=== PATIENT | female | born 1955 | race Asian ===

== ENCOUNTER → 2016-06-06 | Outpatient (CLI) | payer OTHER ==
[~2016-06-06] MED LIST: ACET-2744 PO; ASPI-1061 PO; DSS100 PO; HYDR-3965 PO; MULT-950 PO; SIMV-261 PO
[2016-06-06 13:00] LABS: BASOPHILS % (AUTO) 0.7 % (0.0-2.0); EOSINOPHILS % (AUTO) 2.7 % (1.0-6.0); HEMATOCRIT 48.2 % (36-46); HEMOGLOBIN 15.6 g/dL (12.0-16.0); LYMPHOCYTES # (AUTO) 3.4 K/uL (1.0-4.8); LYMPHOCYTES % (AUTO) 39.3 % (22.0-44.0); MEAN CORPUSCULAR HEMOGLOBIN 29.8 pg (26.0-34.0); MEAN CORPUSCULAR HGB CONC 32.4 G/dL (31.0-37.0); MEAN CORPUSCULAR VOLUME 92 fL (80-100); MONOCYTES # (AUTO) 0.4 K/uL (0.1-1.0); MONOCYTES % (AUTO) 4.9 % (2.0-9.0); NEUTROPHILS # (AUTO) 4.5 K/uL (1.8-7.7); NEUTROPHILS % (AUTO) 52.4 % (40.0-70.0); PLATELET COUNT (AUTO) 333 K/uL (150-450); RED BLOOD CELL COUNT(AUTO) 5.25 MIL/uL (4.00-5.20); RED CELL DISTRIBUTION WIDTH 13.9 % (11.5-14.5); WHITE BLOOD COUNT (AUTO) 8.6 K/uL (4.5-11.0)
[2016-06-06 13:16] LABS: HEMOGLOBIN A1C 6.7 % (4.5-6.2)
[2016-06-06 13:18] LABS: ALANINE AMINOTRANSFERASE 30 U/L (12-78); ANION GAP 11 mmol/L (8-16); ASPARTATE AMINOTRANSFERASE 25 U/L (15-37); BILIRUBIN,TOTAL 0.7 mg/dL (0.1-1.0); CALCIUM, TOTAL 9.4 mg/dL (8.8-10.5); CARBON DIOXIDE 28 mmol/L (22-29); CHLORIDE 100 mmol/L (98-107); CHOL/HDL RATIO 5.7 (3.9-5.7); GLOMERULAR FILTR. RATE CALC > 60 mL/min (>60); POTASSIUM 3.7 mmol/L (3.5-5.1); SODIUM SERUM 139 mmol/L (136-145); THYROID STIMULATING HORMONE 1.74 uIU/mL (0.36-3.74); TOTAL PROTEIN, SERUM 8.8 g/dL (6.4-8.2); UREA NITROGEN, BLOOD 18 mg/dL (7-18)
[2016-06-07 13:46] LABS: CREATININE, URINE (mALB) 86.1 mg/dL (Not Estab.)
== END | disposition home or self-care (01) ==
LOC: LABPV 09:42
PROVIDERS: ATTEND Legal Medicine
DX: E11.65 Type 2 diabetes mellitus with hyperglycemia (principal); E11.69 Type 2 diabetes mellitus with other specified complication; E78.2 Mixed hyperlipidemia; C50.819 Malignant neoplasm of overlapping sites of unspecified female breast
CPT/HCPCS: 82043; 82306; 82378; 82570; 83036; 84443

== ENCOUNTER → 2016-07-05 | Outpatient (CLI) | payer OTHER | END | disposition home or self-care (01) | LOC: RADPV 13:13 | PROVIDERS: ATTEND Legal Medicine | DX: M16.12 Unilateral primary osteoarthritis, left hip (principal) | CPT/HCPCS: 73503 ==

== ENCOUNTER → 2016-10-09 | Outpatient (CLI) | payer OTHER ==
[2016-10-09 13:26] LABS: BASOPHILS % (AUTO) 0.6 % (0.0-2.0); EOSINOPHILS % (AUTO) 2.8 % (1.0-6.0); HEMOGLOBIN 14.8 g/dL (12.0-16.0); LYMPHOCYTES # (AUTO) 3.3 K/uL (1.0-4.8); LYMPHOCYTES % (AUTO) 38.7 % (22.0-44.0); MEAN CORPUSCULAR HEMOGLOBIN 30.1 pg (26.0-34.0); MEAN CORPUSCULAR HGB CONC 32.9 G/dL (31.0-37.0); MEAN CORPUSCULAR VOLUME 91 fL (80-100); MONOCYTES # (AUTO) 0.4 K/uL (0.1-1.0); MONOCYTES % (AUTO) 5.2 % (2.0-9.0); NEUTROPHILS # (AUTO) 4.4 K/uL (1.8-7.7); NEUTROPHILS % (AUTO) 52.7 % (40.0-70.0); PLATELET COUNT (AUTO) 370 K/uL (150-450); RED BLOOD CELL COUNT(AUTO) 4.91 MIL/uL (4.00-5.20); RED CELL DISTRIBUTION WIDTH 13.7 % (11.5-14.5); WHITE BLOOD COUNT (AUTO) 8.4 K/uL (4.5-11.0)
[2016-10-09 13:40] LABS: ALANINE AMINOTRANSFERASE 30 U/L (12-78); ALBUMIN 3.9 g/dL (3.4-5.0); ANION GAP 7 mmol/L (8-16); ASPARTATE AMINOTRANSFERASE 23 U/L (15-37); BILIRUBIN,TOTAL 0.5 mg/dL (0.1-1.0); CALCIUM, TOTAL 9.2 mg/dL (8.8-10.5); CARBON DIOXIDE 30 mmol/L (22-29); CHLORIDE 103 mmol/L (98-107); CHOL/HDL RATIO 4.4 (3.9-5.7); GLOMERULAR FILTR. RATE CALC > 60 mL/min (>60); POTASSIUM 4.5 mmol/L (3.5-5.1); SODIUM SERUM 140 mmol/L (136-145); TOTAL PROTEIN, SERUM 8.5 g/dL (6.4-8.2); UREA NITROGEN, BLOOD 19 mg/dL (7-18)
[2016-10-10 16:15] LABS: CREATININE, URINE (mALB) 130.6 mg/dL (Not Estab.)
== END | disposition home or self-care (01) ==
LOC: LABPV 11:29
PROVIDERS: ATTEND Legal Medicine
DX: E11.65 Type 2 diabetes mellitus with hyperglycemia (principal); I10 Essential (primary) hypertension; E78.2 Mixed hyperlipidemia
CPT/HCPCS: 82043; 82570; 83036

== ENCOUNTER → 2017-04-10 | Outpatient (CLI) | payer OTHER ==
[~2017-04-10] MED LIST changes: -ASPI-1061 PO; +ASPI81TA33 PO; -HYDR-3965 PO; +HYDR-4061 PO
[2017-04-10 14:56] LABS: BASOPHILS % (AUTO) 0.6 % (0.0-2.0); EOSINOPHILS % (AUTO) 2.3 % (1.0-6.0); HEMATOCRIT 45.9 % (36-46); HEMOGLOBIN 15.5 g/dL (12.0-16.0); LYMPHOCYTES # (AUTO) 3.1 K/uL (1.0-4.8); LYMPHOCYTES % (AUTO) 30.7 % (22.0-44.0); MEAN CORPUSCULAR HEMOGLOBIN 30.8 pg (26.0-34.0); MEAN CORPUSCULAR HGB CONC 33.8 G/dL (31.0-37.0); MEAN CORPUSCULAR VOLUME 91 fL (80-100); MONOCYTES # (AUTO) 0.6 K/uL (0.1-1.0); MONOCYTES % (AUTO) 6.3 % (2.0-9.0); NEUTROPHILS % (AUTO) 60.1 % (40.0-70.0); PLATELET COUNT (AUTO) 320 K/uL (150-450); RED BLOOD CELL COUNT(AUTO) 5.03 MIL/uL (4.00-5.20); RED CELL DISTRIBUTION WIDTH 14.1 % (11.5-14.5)
[2017-04-10 15:28] LABS: HEMOGLOBIN A1C 6.9 % (4.5-6.2)
[2017-04-10 15:35] LABS: ALANINE AMINOTRANSFERASE 35 U/L (12-78); ANION GAP 8 mmol/L (8-16); ASPARTATE AMINOTRANSFERASE 29 U/L (15-37); BILIRUBIN,TOTAL 0.7 mg/dL (0.1-1.0); CALCIUM, TOTAL 9.4 mg/dL (8.8-10.5); CARBON DIOXIDE 30 mmol/L (22-29); CHLORIDE 100 mmol/L (98-107); CHOL/HDL RATIO 3.4 (3.9-5.7); CREATININE 0.86 mg/dL (0.60-1.30); GLOMERULAR FILTR. RATE CALC > 60 mL/min (>60); POTASSIUM 4.2 mmol/L (3.5-5.1); SODIUM SERUM 138 mmol/L (136-145); THYROID STIMULATING HORMONE 1.65 uIU/mL (0.36-3.74); TOTAL PROTEIN, SERUM 8.7 g/dL (6.4-8.2); UREA NITROGEN, BLOOD 18 mg/dL (7-18)
[2017-04-10 15:57] LABS: VITAMIN B12 LEVEL > 2000 pg/mL (211-911)
[2017-04-11 11:23] LABS: CREATININE, URINE (mALB) 66.2 mg/dL (Not Estab.)
== END | disposition home or self-care (01) ==
LOC: LABPV 11:32
PROVIDERS: ATTEND Legal Medicine
DX: E78.2 Mixed hyperlipidemia (principal); I10 Essential (primary) hypertension; E11.69 Type 2 diabetes mellitus with other specified complication; C50.811 Malignant neoplasm of overlapping sites of right female breast
CPT/HCPCS: 82043; 82306; 82378; 82570; 82607; 82746; 83036; 83735; 84443

== ENCOUNTER → 2017-04-16 | Outpatient (CLI) | payer OTHER | END | disposition home or self-care (01) | LOC: RADPV 11:44 | PROVIDERS: ATTEND Legal Medicine | DX: M19.011 Primary osteoarthritis, right shoulder (principal) ==

== ENCOUNTER → 2017-11-10 | Outpatient (CLI) | payer OTHER ==
[~2017-11-10] MED LIST changes: -ASPI81TA33 PO; +ASPI81TA87 PO
[2017-11-10 13:01] LABS: BASOPHILS % (AUTO) 1.1 % (0.0-2.0); HEMATOCRIT 43.4 % (36-46); HEMOGLOBIN 14.7 g/dL (12.0-16.0); LYMPHOCYTES % (AUTO) 40.7 % (22.0-44.0); MEAN CORPUSCULAR HEMOGLOBIN 30.9 pg (26.0-34.0); MEAN CORPUSCULAR HGB CONC 33.7 G/dL (31.0-37.0); MEAN CORPUSCULAR VOLUME 92 fL (80-100); MONOCYTES # (AUTO) 0.4 K/uL (0.1-1.0); MONOCYTES % (AUTO) 5.8 % (2.0-9.0); NEUTROPHILS # (AUTO) 3.6 K/uL (1.8-7.7); NEUTROPHILS % (AUTO) 49.4 % (40.0-70.0); PLATELET COUNT (AUTO) 314 K/uL (150-450); RED BLOOD CELL COUNT(AUTO) 4.74 MIL/uL (4.00-5.20); RED CELL DISTRIBUTION WIDTH 13.5 % (11.5-14.5)
[2017-11-10 13:19] LABS: HEMOGLOBIN A1C 7.4 % (4.5-6.2)
[2017-11-10 13:26] LABS: VITAMIN B12 LEVEL 1578 pg/mL (211-911); VITAMIN D,TOTAL (25-0H) 29 ng/mL (30-100)
[2017-11-10 13:28] LABS: ALANINE AMINOTRANSFERASE 32 U/L (12-78); ALBUMIN 3.7 g/dL (3.4-5.0); ALKALINE PHOSPHATASE 92 U/L (46-116); ANION GAP 7 mmol/L (8-16); ASPARTATE AMINOTRANSFERASE 23 U/L (15-37); BILIRUBIN,TOTAL 0.4 mg/dL (0.1-1.0); CALCIUM, TOTAL 8.7 mg/dL (8.8-10.5); CARBON DIOXIDE 29 mmol/L (22-29); CHLORIDE 103 mmol/L (98-107); CHOL/HDL RATIO 4.8 (3.9-5.7); CHOLESTEROL 203 mg/dL (131-200); CREATININE 0.78 mg/dL (0.60-1.30); GLOMERULAR FILTR. RATE CALC > 60 mL/min (>60); GLUCOSE,RANDOM 140 mg/dL (70-110); HDL CHOLESTEROL 42 mg/dL (40-60); LDL CHOL (CALC.) 135 mg/dL (0-130); SODIUM SERUM 139 mmol/L (136-145); THYROID STIMULATING HORMONE 1.74 uIU/mL (0.36-3.74); TOTAL PROTEIN, SERUM 7.9 g/dL (6.4-8.2); TRIGLYCERIDES 130 mg/dL (15-150); UREA NITROGEN, BLOOD 19 mg/dL (7-18)
[2017-11-10 13:45] LABS: FOLATE SERUM > 24.0 ng/mL (5.4-)
== END | disposition home or self-care (01) ==
LOC: LABPV 09:49
PROVIDERS: ATTEND Legal Medicine
DX: E11.65 Type 2 diabetes mellitus with hyperglycemia (principal); E78.2 Mixed hyperlipidemia; C50.819 Malignant neoplasm of overlapping sites of unspecified female breast
CPT/HCPCS: 82043; 82306; 82378; 82570; 82607; 82746; 83036; 84443

== ENCOUNTER → 2018-07-14 | Outpatient (CLI) | payer OTHER ==
[2018-07-14 12:50] LABS: BASOPHILS % (AUTO) 1.1 % (0.0-2.0); HEMATOCRIT 45.7 % (36-46); HEMOGLOBIN 14.9 g/dL (12.0-16.0); LYMPHOCYTES # (AUTO) 2.9 K/uL (1.0-4.8); LYMPHOCYTES % (AUTO) 39.9 % (22.0-44.0); MEAN CORPUSCULAR HEMOGLOBIN 30.2 pg (26.0-34.0); MEAN CORPUSCULAR HGB CONC 32.7 G/dL (31.0-37.0); MEAN CORPUSCULAR VOLUME 92 fL (80-100); MONOCYTES # (AUTO) 0.4 K/uL (0.1-1.0); MONOCYTES % (AUTO) 5.2 % (2.0-9.0); NEUTROPHILS # (AUTO) 3.7 K/uL (1.8-7.7); NEUTROPHILS % (AUTO) 50.8 % (40.0-70.0); PLATELET COUNT (AUTO) 335 K/uL (150-450); RED BLOOD CELL COUNT(AUTO) 4.95 MIL/uL (4.00-5.20); RED CELL DISTRIBUTION WIDTH 13.4 % (11.5-14.5)
[2018-07-14 13:02] LABS: HEMOGLOBIN A1C 7.5 % (4.5-6.2)
[2018-07-14 13:13] LABS: ALANINE AMINOTRANSFERASE 31 U/L (12-78); ALBUMIN 3.9 g/dL (3.4-5.0); ALKALINE PHOSPHATASE 86 U/L (46-116); ANION GAP 9 mmol/L (8-16); ASPARTATE AMINOTRANSFERASE 27 U/L (15-37); BILIRUBIN,TOTAL 0.7 mg/dL (0.1-1.0); CALCIUM, TOTAL 9.3 mg/dL (8.8-10.5); CARBON DIOXIDE 28 mmol/L (22-29); CHLORIDE 100 mmol/L (98-107); CHOL/HDL RATIO 4.6 (3.9-5.7); CHOLESTEROL 212 mg/dL (131-200); CREATININE 0.71 mg/dL (0.60-1.30); GLOMERULAR FILTR. RATE CALC > 60 mL/min (>60); GLUCOSE,RANDOM 147 mg/dL (70-110); HDL CHOLESTEROL 46 mg/dL (40-60); LDL CHOL (CALC.) 145 mg/dL (0-130); SODIUM SERUM 137 mmol/L (136-145); THYROID STIMULATING HORMONE 1.22 uIU/mL (0.36-3.74); TOTAL PROTEIN, SERUM 8.3 g/dL (6.4-8.2); TRIGLYCERIDES 104 mg/dL (15-150); UREA NITROGEN, BLOOD 18 mg/dL (7-18)
[2018-07-14 13:15] LABS: VITAMIN B12 LEVEL 1609 pg/mL (211-911); VITAMIN D,TOTAL (25-0H) 41 ng/mL (30-100)
[2018-07-14 13:24] LABS: FOLATE SERUM > 24.0 ng/mL (5.4-)
== END | disposition home or self-care (01) ==
LOC: LABPV 11:26
PROVIDERS: ATTEND Legal Medicine
DX: C50.819 Malignant neoplasm of overlapping sites of unspecified female breast (principal); K21.9 Gastro-esophageal reflux disease without esophagitis; I10 Essential (primary) hypertension; E78.2 Mixed hyperlipidemia; E11.65 Type 2 diabetes mellitus with hyperglycemia
CPT/HCPCS: 82043; 82306; 82378; 82570; 82607; 82746; 83036; 83735; 84443

== ENCOUNTER → 2018-12-29 | Outpatient (CLI) | payer OTHER ==
[2018-12-29 12:20] LABS: BASOPHILS % (AUTO) 1.2 % (0.0-2.0); EOSINOPHILS % (AUTO) 2.7 % (1.0-6.0); LYMPHOCYTES # (AUTO) 3.2 K/uL (1.0-4.8); LYMPHOCYTES % (AUTO) 39.2 % (22.0-44.0); MEAN CORPUSCULAR HEMOGLOBIN 30.4 pg (26.0-34.0); MEAN CORPUSCULAR HGB CONC 32.5 G/dL (31.0-37.0); MEAN CORPUSCULAR VOLUME 93 fL (80-100); MONOCYTES # (AUTO) 0.5 K/uL (0.1-1.0); MONOCYTES % (AUTO) 5.9 % (2.0-9.0); NEUTROPHILS # (AUTO) 4.1 K/uL (1.8-7.7); PLATELET COUNT (AUTO) 322 K/uL (150-450); RED BLOOD CELL COUNT(AUTO) 4.93 MIL/uL (4.00-5.20); RED CELL DISTRIBUTION WIDTH 13.6 % (11.5-14.5)
[2018-12-29 12:44] LABS: VITAMIN B12 LEVEL 1833 pg/mL (211-911); VITAMIN D,TOTAL (25-0H) 29 ng/mL (30-100)
[2018-12-29 12:57] LABS: FOLATE SERUM > 24.0 ng/mL (5.4-)
[2018-12-29 13:10] LABS: ALANINE AMINOTRANSFERASE 25 U/L (12-78); ALKALINE PHOSPHATASE 86 U/L (46-116); ANION GAP 10 mmol/L (8-16); ASPARTATE AMINOTRANSFERASE 24 U/L (15-37); BILIRUBIN,TOTAL 0.7 mg/dL (0.1-1.0); CALCIUM, TOTAL 9.1 mg/dL (8.8-10.5); CARBON DIOXIDE 27 mmol/L (22-29); CHLORIDE 101 mmol/L (98-107); CHOL/HDL RATIO 4.3 (3.9-5.7); CHOLESTEROL 200 mg/dL (131-200); CREATININE 0.72 mg/dL (0.60-1.30); GLOMERULAR FILTR. RATE CALC > 60 mL/min (>60); GLUCOSE,RANDOM 141 mg/dL (70-110); HDL CHOLESTEROL 47 mg/dL (40-60); LDL CHOL (CALC.) 131 mg/dL (0-130); POTASSIUM 3.6 mmol/L (3.5-5.1); SODIUM SERUM 138 mmol/L (136-145); THYROID STIMULATING HORMONE 1.11 uIU/mL (0.36-3.74); TOTAL PROTEIN, SERUM 8.3 g/dL (6.4-8.2); TRIGLYCERIDES 108 mg/dL (15-150); UREA NITROGEN, BLOOD 15 mg/dL (7-18)
== END | disposition home or self-care (01) ==
LOC: LABPV 11:14
PROVIDERS: ATTEND Legal Medicine
DX: C50.819 Malignant neoplasm of overlapping sites of unspecified female breast (principal); K21.9 Gastro-esophageal reflux disease without esophagitis; I10 Essential (primary) hypertension; E78.2 Mixed hyperlipidemia
CPT/HCPCS: 82043; 82306; 82378; 82570; 82607; 82746; 83036; 84443

== ENCOUNTER → 2019-05-31 | Outpatient (CLI) | payer OTHER ==
[2019-05-31 12:57] LABS: HEMATOCRIT 47.2 % (36-46); HEMOGLOBIN 15.5 g/dL (12.0-16.0); LYMPHOCYTES # (AUTO) 3.3 K/uL (1.0-4.8); LYMPHOCYTES % (AUTO) 43.3 % (22.0-44.0); MEAN CORPUSCULAR HEMOGLOBIN 30.3 pg (26.0-34.0); MEAN CORPUSCULAR HGB CONC 32.8 G/dL (31.0-37.0); MEAN CORPUSCULAR VOLUME 92 fL (80-100); MONOCYTES # (AUTO) 0.4 K/uL (0.1-1.0); MONOCYTES % (AUTO) 5.6 % (2.0-9.0); NEUTROPHILS # (AUTO) 3.5 K/uL (1.8-7.7); NEUTROPHILS % (AUTO) 47.1 % (40.0-70.0); PLATELET COUNT (AUTO) 347 K/uL (150-450); RED BLOOD CELL COUNT(AUTO) 5.12 MIL/uL (4.00-5.20); RED CELL DISTRIBUTION WIDTH 13.6 % (11.5-14.5)
[2019-05-31 13:32] LABS: ALANINE AMINOTRANSFERASE 42 U/L (12-78); ALBUMIN 3.9 g/dL (3.4-5.0); ALKALINE PHOSPHATASE 89 U/L (46-116); ANION GAP 9 mmol/L (8-16); ASPARTATE AMINOTRANSFERASE 22 U/L (15-37); BILIRUBIN,TOTAL 0.6 mg/dL (0.1-1.0); CALCIUM, TOTAL 8.9 mg/dL (8.8-10.5); CARBON DIOXIDE 28 mmol/L (22-29); CHLORIDE 98 mmol/L (98-107); CHOL/HDL RATIO 4.9 (3.9-5.7); CHOLESTEROL 232 mg/dL (131-200); CREATININE 0.79 mg/dL (0.60-1.30); GLOMERULAR FILTR. RATE CALC > 60 mL/min (>60); GLUCOSE,RANDOM 145 mg/dL (70-110); HDL CHOLESTEROL 47 mg/dL (40-60); LDL CHOL (CALC.) 143 mg/dL (0-130); POTASSIUM 3.6 mmol/L (3.5-5.1); SODIUM SERUM 135 mmol/L (136-145); THYROID STIMULATING HORMONE 1.51 uIU/mL (0.36-3.74); TOTAL PROTEIN, SERUM 8.4 g/dL (6.4-8.2); TRIGLYCERIDES 211 mg/dL (15-150); UREA NITROGEN, BLOOD 17 mg/dL (7-18)
[2019-05-31 13:49] LABS: HEMOGLOBIN A1C 8.4 % (4.5-6.2)
[2019-05-31 13:59] LABS: FOLATE SERUM 20.2 ng/mL (5.4-)
== END | disposition home or self-care (01) ==
LOC: LABPV 11:50
PROVIDERS: ATTEND Legal Medicine
DX: C50.819 Malignant neoplasm of overlapping sites of unspecified female breast (principal); I10 Essential (primary) hypertension; E11.65 Type 2 diabetes mellitus with hyperglycemia; E78.2 Mixed hyperlipidemia; K21.9 Gastro-esophageal reflux disease without esophagitis
CPT/HCPCS: 82043; 82306; 82378; 82570; 82607; 82746; 83036; 83735; 84443

== ENCOUNTER 2020-01-03 13:21 | Emergency (ER) | payer OTHER ==
[~2020-01-03] VITALS: Ht 152.4 cm; Wt 55.5 kg
[2020-01-03 13:28] VITALS: BP 159/86
== END 2020-01-03 14:39 | disposition home or self-care (01) ==
LOC: EMS 13:24
DX: Z20.828 Contact with and (suspected) exposure to other viral communicable diseases (principal); E78.00 Pure hypercholesterolemia, unspecified; Z88.0 Allergy status to penicillin; Z88.2 Allergy status to sulfonamides
CPT/HCPCS: 87426; 99283; U0003

== ENCOUNTER → 2020-01-10 | Outpatient (CLI) | payer OTHER ==
[~2020-01-10] MED LIST changes: -ACET-2744 PO; -DSS100 PO; -HYDR-4061 PO
[2020-01-10 10:58] LABS: BASOPHILS % (AUTO) 0.7 % (0.0-2.0); EOSINOPHILS % (AUTO) 0 % (1.0-6.0); HEMATOCRIT 45.5 % (36-46); HEMOGLOBIN 15.2 g/dL (12.0-16.0); LYMPHOCYTES % (AUTO) 37.1 % (22.0-44.0); MEAN CORPUSCULAR HEMOGLOBIN 30.4 pg (26.0-34.0); MEAN CORPUSCULAR HGB CONC 33.4 G/dL (31.0-37.0); MEAN CORPUSCULAR VOLUME 91 fL (80-100); MONOCYTES # (AUTO) 0.6 K/uL (0.1-1.0); MONOCYTES % (AUTO) 10.2 % (2.0-9.0); NEUTROPHILS # (AUTO) 2.8 K/uL (1.8-7.7); PLATELET COUNT (AUTO) 206 K/uL (150-450); RED BLOOD CELL COUNT(AUTO) 4.99 MIL/uL (4.00-5.20); RED CELL DISTRIBUTION WIDTH 13.5 % (11.5-14.5)
[2020-01-10 11:17] LABS: ALBUMIN 3.5 g/dL (3.4-5.0); BILIRUBIN,TOTAL 0.5 mg/dL (0.1-1.0); CALCIUM, TOTAL 8.6 mg/dL (8.8-10.5); CHOL/HDL RATIO 5.3 (3.9-5.7); CREATININE 1.12 mg/dL (0.60-1.30); POTASSIUM 3.7 mmol/L (3.5-5.1); TOTAL PROTEIN, SERUM 8.5 g/dL (6.4-8.2)
[2020-01-10 11:26] LABS: HEMOGLOBIN A1C 7.4 % (3.8-5.6)
[2020-01-10 11:51] LABS: VITAMIN B12 LEVEL 1738 pg/mL (211-911); VITAMIN D,TOTAL (25-0H) 30 ng/mL (30-100)
[2020-01-10 12:42] LABS: FOLATE SERUM > 24.0 ng/mL (5.4-)
[2020-01-10 14:11] LABS: THYROID STIMULATING HORMONE 1.59 uIU/mL (0.36-3.74)
== END | disposition home or self-care (01) ==
LOC: LABPV 09:31
PROVIDERS: ATTEND Legal Medicine
DX: I10 Essential (primary) hypertension (principal); E11.65 Type 2 diabetes mellitus with hyperglycemia; E11.59 Type 2 diabetes mellitus with other circulatory complications; E11.69 Type 2 diabetes mellitus with other specified complication; E78.2 Mixed hyperlipidemia; C50.819 Malignant neoplasm of overlapping sites of unspecified female breast
CPT/HCPCS: 82043; 82306; 82378; 82570; 82607; 82746; 83036; 84443

== ENCOUNTER 2020-01-15 12:38 | Inpatient (IN) | payer OTHER ==
[~2020-01-15] VITALS: Ht 152.4 cm; Wt 47.7 kg
[2020-01-15] MEDS ORDERED: SODIUM CHLORIDE 0.9% 1,000 ML IV ONE ×2 (13:00→17:15)
[2020-01-15 13:24] LABS: BASOPHILS % (AUTO) 1.3 % (0.0-2.0); EOSINOPHILS % (AUTO) 0.2 % (1.0-6.0); HEMATOCRIT 48.5 % (36-46); HEMOGLOBIN 16.3 g/dL (12.0-16.0); LYMPHOCYTES # (AUTO) 1.8 K/uL (1.0-4.8); LYMPHOCYTES % (AUTO) 30.1 % (22.0-44.0); MEAN CORPUSCULAR HEMOGLOBIN 30.5 pg (26.0-34.0); MEAN CORPUSCULAR HGB CONC 33.7 G/dL (31.0-37.0); MEAN CORPUSCULAR VOLUME 91 fL (80-100); MONOCYTES # (AUTO) 0.5 K/uL (0.1-1.0); MONOCYTES % (AUTO) 8.6 % (2.0-9.0); NEUTROPHILS # (AUTO) 3.6 K/uL (1.8-7.7); NEUTROPHILS % (AUTO) 59.8 % (40.0-70.0); PLATELET COUNT (AUTO) 303 K/uL (150-450); RED BLOOD CELL COUNT(AUTO) 5.35 MIL/uL (4.00-5.20); RED CELL DISTRIBUTION WIDTH 13.6 % (11.5-14.5)
[2020-01-15 13:37] LABS: ANION GAP 13 mmol/L (8-16); CALCIUM, TOTAL 9.2 mg/dL (8.8-10.5); CARBON DIOXIDE 26 mmol/L (22-29); CHLORIDE 101 mmol/L (98-107); CREATININE 2.12 mg/dL (0.60-1.30); GLOMERULAR FILTR. RATE CALC 24 mL/min (>60); GLUCOSE,RANDOM 144 mg/dL (70-110); SODIUM SERUM 140 mmol/L (136-145); UREA NITROGEN, BLOOD 37 mg/dL (7-18)
[2020-01-15 13:44] LABS: LACTIC ACID 1.6 mmol/L (0.4-2.0)
[2020-01-15 13:49] LABS: TROPONIN I < 0.02 ng/mL (0.00-0.05)
[2020-01-15 13:50] LABS: SALICYLATE < 2.8 mg/dL (2.8-20.0)
[2020-01-15 13:58] LABS: B-TYPE NATRIURETIC PEPTIDE 16 pg/mL (0-100)
[2020-01-15] MEDS ORDERED: SODIUM CHLORIDE 0.9% 2,200 ML IV ONE (14:00)
[2020-01-15 14:03] LABS: ALANINE AMINOTRANSFERASE 61 U/L (12-78); ALBUMIN 3.7 g/dL (3.4-5.0); ALKALINE PHOSPHATASE 72 U/L (46-116); ASPARTATE AMINOTRANSFERASE 68 U/L (15-37); BILIRUBIN,TOTAL 0.8 mg/dL (0.1-1.0); CREATINE KINASE, TOTAL ONLY 236 U/L (26-192); LIPASE 267 U/L (73-393); TOTAL PROTEIN, SERUM 9.4 g/dL (6.4-8.2)
[2020-01-15 14:04] LABS: ACETAMINOPHEN < 2 mcg/mL (10-30)
[2020-01-15 14:06] LABS: AMMONIA < 10 umol/L (11-32)
[2020-01-15 14:07] LABS: ACETONE,BLOOD NEGATIVE (NEGATIVE)
[2020-01-15 15:27] LABS: GLUCOSE,POINT OF CARE 116 MG/DL (70-110)
[2020-01-15] MEDS ORDERED: ACETAMINOPHEN 325 MG TABLET PO PRN (15:30)
[2020-01-15] MEDS ORDERED: ONDANSETRON HCL 4 MG/2 ML VIAL IVP PRN (15:30)
[2020-01-15 16:45] LABS: APPEARANCE,URINE CLOUDY (CLEAR); BILIRUBIN,URINE NEGATIVE (NEGATIVE); GLUCOSE, URINE (UA) NEGATIVE (NEGATIVE); KETONES,URINE TRACE mg/dL (NEGATIVE); LEUKOCYTE ESTERASE ,URINE SMALL (NEGATIVE); NITRATE,URINE NEGATIVE (NEGATIVE); OCCULT BLOOD,URINE NEGATIVE (NEGATIVE); PH,URINE 5.5 (5.0-8.0); PROTEIN,URINE TRACE (NEGATIVE)
[2020-01-15 16:50] LABS: AMPHET/METH SCREEN,URINE NEGATIVE (NEGATIVE); BARBITURATE SCREEN, URINE NEGATIVE (NEGATIVE); BENZODIAZEPINES SCREEN,URINE NEGATIVE (NEGATIVE); CANNABINOID SCREEN,URINE NEGATIVE (NEGATIVE); COCAINE SCREEN,URINE NEGATIVE (NEGATIVE); METHADONE SCREEN, URINE NEGATIVE (NEGATIVE); OPIATE SCREEN,URINE NEGATIVE (NEGATIVE); PHENCYCLIDINE SCREEN,URINE NEGATIVE (NEGATIVE)
[2020-01-15] MEDS ORDERED: HEPARIN SODIUM 25000 UNITS/D5W 250 ML IV PRN (17:03)
[2020-01-15 17:10] LABS: RBC,URINE None Seen /HPF (0-2)
[2020-01-15 17:11] LABS: BACTERIA,URINE Rare /HPF (None Seen); SQUAMOUS EPITHELIAL CELL,UR Few /LPF (None Seen)
[2020-01-15] MEDS ORDERED: HEPARIN SODIUM,PORCINE 5,000 UNITS/ML VIAL IVP PRN ×2 (17:15)
[2020-01-15 17:49] LABS: PROTHROMBIN TIME 10.2 SEC (9.4-11.6)
[2020-01-15 17:50] LABS: D-DIMER 0.7 mg/L FEU (0.00-0.50)
[2020-01-15 18:48] LABS: C-REACTIVE PROTEIN QUANT 4.06 mg/dL (0.00-0.30)
[2020-01-15 20:15] VITALS: BP 168/85
[2020-01-15] MEDS: ASCORBIC ACID 500 MG TABLET PO SCH (21:57)
[2020-01-15] MEDS: ZINC SULFATE 220 MG CAPSULE PO SCH (21:57)
[2020-01-15] MEDS: THIAMINE 100 MG/ML 2 ML VIAL IVP SCH (21:58)
[2020-01-15 23:53] VITALS: BP 160/85
[2020-01-16 06:17] VITALS: BP 144/78
[2020-01-16 06:54] LABS: GLUCOMETER DEV NAME(LOC) 4E.2; GLUCOSE,POINT OF CARE 99 MG/DL (70-110)
[2020-01-16 07:07] LABS: EOSINOPHILS % (AUTO) 1.7 % (1.0-6.0); HEMATOCRIT 41.7 % (36-46); HEMOGLOBIN 13.8 g/dL (12.0-16.0); LYMPHOCYTES # (AUTO) 2.4 K/uL (1.0-4.8); LYMPHOCYTES % (AUTO) 37.6 % (22.0-44.0); MEAN CORPUSCULAR HEMOGLOBIN 30.1 pg (26.0-34.0); MEAN CORPUSCULAR HGB CONC 33.2 G/dL (31.0-37.0); MEAN CORPUSCULAR VOLUME 91 fL (80-100); MONOCYTES # (AUTO) 0.6 K/uL (0.1-1.0); MONOCYTES % (AUTO) 8.9 % (2.0-9.0); NEUTROPHILS # (AUTO) 3.2 K/uL (1.8-7.7); NEUTROPHILS % (AUTO) 50.8 % (40.0-70.0); PLATELET COUNT (AUTO) 312 K/uL (150-450); RED CELL DISTRIBUTION WIDTH 13.7 % (11.5-14.5)
[2020-01-16 07:32] LABS: D-DIMER 0.73 mg/L FEU (0.00-0.50)
[2020-01-16 08:02] LABS: C-REACTIVE PROTEIN QUANT 2.39 mg/dL (0.00-0.30); FERRITIN 1401 ng/mL (8-252); LACTATE DEHYDROGENASE 531 U/L (81-234)
[2020-01-16 08:48] VITALS: BP 163/70
[2020-01-16] MEDS: ASCORBIC ACID 500 MG TABLET PO SCH ×3 (09:20→21:04)
[2020-01-16] MEDS: ZINC SULFATE 220 MG CAPSULE PO SCH ×2 (09:21→21:05)
[2020-01-16] MEDS: THIAMINE 100 MG/ML 2 ML VIAL IVP SCH (09:22)
[2020-01-16] MEDS ORDERED: DEXTROSE 50%-WATER 25 GM/50 ML SYRINGE IVP PRN (11:30)
[2020-01-16] MEDS: AmLODIPine BESYLATE 5 MG TABLET PO SCH (12:06)
[2020-01-16 12:12] LABS: ANION GAP 12 mmol/L (8-16); CALCIUM, TOTAL 7.8 mg/dL (8.8-10.5); CARBON DIOXIDE 22 mmol/L (22-29); CHLORIDE 106 mmol/L (98-107); CREATININE 0.83 mg/dL (0.60-1.30); GLOMERULAR FILTR. RATE CALC > 60 mL/min (>60); GLUCOSE,RANDOM 84 mg/dL (70-110); POTASSIUM 3.5 mmol/L (3.5-5.1); SODIUM SERUM 140 mmol/L (136-145); THYROID STIMULATING HORMONE 1.66 uIU/mL (0.36-3.74); UREA NITROGEN, BLOOD 16 mg/dL (7-18)
[2020-01-16 16:03] LABS: GLUCOMETER DEV NAME(LOC) 4E.2; GLUCOSE,POINT OF CARE 135 MG/DL (70-110)
[2020-01-16 17:22] LABS: GLUCOMETER DEV NAME(LOC) 4E.2; GLUCOSE,POINT OF CARE 110 MG/DL (70-110)
[2020-01-16 19:00] VITALS: BP 147/70
[2020-01-16] MEDS: APIXABAN 2.5 MG TABLET PO SCH (21:04)
[2020-01-16 22:28] LABS: GLUCOMETER DEV NAME(LOC) 6S.1; GLUCOSE,POINT OF CARE 104 MG/DL (70-110)
[2020-01-17 06:55] LABS: GLUCOMETER DEV NAME(LOC) 4E.2; GLUCOSE,POINT OF CARE 89 MG/DL (70-110)
[2020-01-17 07:42] LABS: D-DIMER 0.75 mg/L FEU (0.00-0.50)
[2020-01-17 07:46] LABS: C-REACTIVE PROTEIN QUANT 1.82 mg/dL (0.00-0.30)
[2020-01-17 08:26] VITALS: BP 128/75
[2020-01-17] MEDS: AmLODIPine BESYLATE 5 MG TABLET PO SCH (09:01)
[2020-01-17] MEDS: APIXABAN 2.5 MG TABLET PO SCH ×2 (09:01→20:44)
[2020-01-17] MEDS: ASCORBIC ACID 500 MG TABLET PO SCH ×3 (09:01→20:44)
[2020-01-17] MEDS: ZINC SULFATE 220 MG CAPSULE PO SCH ×2 (09:01→20:44)
[2020-01-17] MEDS: INSULIN LISPRO 100 UNITS/ML SQ PRN ×2 (11:38→21:20)
[2020-01-17 12:14] LABS: GLUCOMETER DEV NAME(LOC) 4E.2; GLUCOSE,POINT OF CARE 143 MG/DL (70-110)
[2020-01-17 12:20] VITALS: BP 160/77
[2020-01-17] MEDS ORDERED: BENZONATATE 100 MG CAPSULE PO PRN (16:00)
[2020-01-17 17:39] LABS: GLUCOMETER DEV NAME(LOC) 4E.2; GLUCOSE,POINT OF CARE 106 MG/DL (70-110)
[2020-01-17 19:37] VITALS: BP 135/87
[2020-01-18 01:51] LABS: GLUCOMETER DEV NAME(LOC) 4E.2; GLUCOSE,POINT OF CARE 145 MG/DL (70-110)
[2020-01-18 04:00] VITALS: BP 137/67
[2020-01-18 04:45] VITALS: BP 137/81
[2020-01-18 06:44] LABS: D-DIMER 0.51 mg/L FEU (0.00-0.50)
[2020-01-18 07:20] LABS: GLUCOMETER DEV NAME(LOC) 6S.1; GLUCOSE,POINT OF CARE 105 MG/DL (70-110)
[2020-01-18 07:21] LABS: ALANINE AMINOTRANSFERASE 54 U/L (12-78); ALBUMIN 2.7 g/dL (3.4-5.0); ALKALINE PHOSPHATASE 63 U/L (46-116); ANION GAP 9 mmol/L (8-16); ASPARTATE AMINOTRANSFERASE 57 U/L (15-37); BILIRUBIN,TOTAL 0.7 mg/dL (0.1-1.0); C-REACTIVE PROTEIN QUANT 1.16 mg/dL (0.00-0.30); CALCIUM, TOTAL 8.8 mg/dL (8.8-10.5); CARBON DIOXIDE 26 mmol/L (22-29); CHLORIDE 104 mmol/L (98-107); CREATININE 0.87 mg/dL (0.60-1.30); FERRITIN 884 ng/mL (8-252); GLOMERULAR FILTR. RATE CALC > 60 mL/min (>60); GLUCOSE,RANDOM 116 mg/dL (70-110); LACTATE DEHYDROGENASE 391 U/L (81-234); POTASSIUM 3.1 mmol/L (3.5-5.1); SODIUM SERUM 139 mmol/L (136-145); TOTAL PROTEIN, SERUM 7.5 g/dL (6.4-8.2); UREA NITROGEN, BLOOD 12 mg/dL (7-18)
[2020-01-18 08:01] VITALS: BP 121/61
[2020-01-18] MEDS: ZINC SULFATE 220 MG CAPSULE PO SCH ×2 (08:13→21:04)
[2020-01-18] MEDS: AmLODIPine BESYLATE 5 MG TABLET PO SCH (08:14)
[2020-01-18] MEDS: ASCORBIC ACID 500 MG TABLET PO SCH ×3 (08:14→21:04)
[2020-01-18] MEDS: APIXABAN 2.5 MG TABLET PO SCH ×2 (08:14→21:04)
[2020-01-18] MEDS ORDERED: POTASSIUM CHLORIDE 20 MEQ ER TABLET PO ONE (12:30)
[2020-01-18] MEDS ORDERED: LORazepam 0.5 MG TABLET PO PRN (12:30)
[2020-01-18] MEDS ORDERED: GADOBUTROL 1 MMOL/ML 10 ML VIAL IVP ONE (15:34)
[2020-01-18 20:49] VITALS: BP_SYST 142; BP_DIAS 6; BP_DIAS 66
[2020-01-18] MEDS: INSULIN LISPRO 100 UNITS/ML SQ PRN (21:13)
[2020-01-18 21:52] LABS: GLUCOMETER DEV NAME(LOC) 6S.1; GLUCOSE,POINT OF CARE 158 MG/DL (70-110)
[2020-01-18 21:52] LABS: GLUCOMETER DEV NAME(LOC) 6S.1; GLUCOSE,POINT OF CARE 119 MG/DL (70-110)
[2020-01-18 21:52] LABS: GLUCOMETER DEV NAME(LOC) 6S.1; GLUCOSE,POINT OF CARE 118 MG/DL (70-110)
[2020-01-18 23:43] VITALS: BP 137/74
[2020-01-19 06:35] LABS: GLUCOMETER DEV NAME(LOC) 6S.1; GLUCOSE,POINT OF CARE 109 MG/DL (70-110)
[2020-01-19 06:46] LABS: BASOPHILS % (AUTO) 1.3 % (0.0-2.0); EOSINOPHILS % (AUTO) 3.8 % (1.0-6.0); HEMATOCRIT 43.6 % (36-46); HEMOGLOBIN 14.2 g/dL (12.0-16.0); LYMPHOCYTES # (AUTO) 2.3 K/uL (1.0-4.8); LYMPHOCYTES % (AUTO) 39.5 % (22.0-44.0); MEAN CORPUSCULAR HEMOGLOBIN 29.7 pg (26.0-34.0); MEAN CORPUSCULAR HGB CONC 32.5 G/dL (31.0-37.0); MEAN CORPUSCULAR VOLUME 92 fL (80-100); MONOCYTES # (AUTO) 0.8 K/uL (0.1-1.0); MONOCYTES % (AUTO) 13.7 % (2.0-9.0); NEUTROPHILS # (AUTO) 2.4 K/uL (1.8-7.7); NEUTROPHILS % (AUTO) 41.7 % (40.0-70.0); PLATELET COUNT (AUTO) 434 K/uL (150-450); RED BLOOD CELL COUNT(AUTO) 4.77 MIL/uL (4.00-5.20); RED CELL DISTRIBUTION WIDTH 13.5 % (11.5-14.5)
[2020-01-19 07:00] LABS: D-DIMER 0.46 mg/L FEU (0.00-0.50)
[2020-01-19 07:07] LABS: HEMOGLOBIN A1C 7.5 % (3.8-5.6)
[2020-01-19 07:08] LABS: ANION GAP 4 mmol/L (8-16); C-REACTIVE PROTEIN QUANT 0.65 mg/dL (0.00-0.30); CALCIUM, TOTAL 9.1 mg/dL (8.8-10.5); CARBON DIOXIDE 31 mmol/L (22-29); CHLORIDE 106 mmol/L (98-107); CHOL/HDL RATIO 6.4 (3.9-5.7); CHOLESTEROL 193 mg/dL (131-200); CREATINE KINASE, TOTAL ONLY 64 U/L (26-192); CREATININE 0.83 mg/dL (0.60-1.30); FERRITIN 863 ng/mL (8-252); FREE T4 (FREE THYROXINE) 1.56 ng/dL (0.76-1.46); GLOMERULAR FILTR. RATE CALC > 60 mL/min (>60); GLUCOSE,RANDOM 115 mg/dL (70-110); HDL CHOLESTEROL 30 mg/dL (40-60); LACTATE DEHYDROGENASE 349 U/L (81-234); LDL CHOL (CALC.) 132 mg/dL (0-130); POTASSIUM 3.8 mmol/L (3.5-5.1); SODIUM SERUM 141 mmol/L (136-145); TRIGLYCERIDES 154 mg/dL (15-150); UREA NITROGEN, BLOOD 15 mg/dL (7-18)
[2020-01-19 07:58] VITALS: BP 124/65
[2020-01-19] MEDS: AmLODIPine BESYLATE 5 MG TABLET PO SCH (09:31)
[2020-01-19] MEDS: APIXABAN 2.5 MG TABLET PO SCH ×2 (09:31→21:45)
[2020-01-19] MEDS: ZINC SULFATE 220 MG CAPSULE PO SCH ×2 (09:31→21:45)
[2020-01-19] MEDS: ASCORBIC ACID 500 MG TABLET PO SCH ×3 (09:32→21:45)
[2020-01-19] MEDS: INSULIN LISPRO 100 UNITS/ML SQ PRN ×2 (11:49→21:53)
[2020-01-19 11:54] LABS: GLUCOMETER DEV NAME(LOC) 6S.1; GLUCOSE,POINT OF CARE 148 MG/DL (70-110)
[2020-01-19] MEDS ORDERED: ASPI-1111 PO (13:27)
[2020-01-19 20:15] VITALS: BP 146/82
[2020-01-19 21:33] LABS: GLUCOMETER DEV NAME(LOC) 4E.2; GLUCOSE,POINT OF CARE 134 MG/DL (70-110)
[2020-01-20 02:13] LABS: GLUCOMETER DEV NAME(LOC) 4E.2; GLUCOSE,POINT OF CARE 171 MG/DL (70-110)
[2020-01-20 08:15] VITALS: BP 140/81
[2020-01-20] MEDS: AmLODIPine BESYLATE 5 MG TABLET PO SCH (08:31)
[2020-01-20] MEDS: ASCORBIC ACID 500 MG TABLET PO SCH ×3 (08:31→21:25)
[2020-01-20] MEDS: ZINC SULFATE 220 MG CAPSULE PO SCH ×2 (08:31→21:25)
[2020-01-20] MEDS: MetFORMIN HCL 500 MG TABLET PO SCH (08:31)
[2020-01-20] MEDS: SIMVASTATIN 40 MG TABLET PO SCH (08:31)
[2020-01-20] MEDS: APIXABAN 2.5 MG TABLET PO SCH ×2 (08:31→21:25)
[2020-01-20 12:53] LABS: GLUCOMETER DEV NAME(LOC) 4E.2; GLUCOSE,POINT OF CARE 131 MG/DL (70-110)
[2020-01-20 12:53] LABS: GLUCOMETER DEV NAME(LOC) 4E.2; GLUCOSE,POINT OF CARE 120 MG/DL (70-110)
[2020-01-20 20:08] VITALS: BP 141/72
[2020-01-20] MEDS: INSULIN LISPRO 100 UNITS/ML SQ PRN (21:52)
[2020-01-20 22:23] LABS: GLUCOMETER DEV NAME(LOC) 4E.2; GLUCOSE,POINT OF CARE 107 MG/DL (70-110)
[2020-01-20 23:30] VITALS: BP 138/73
[2020-01-21 00:02] LABS: GLUCOMETER DEV NAME(LOC) 6S.1; GLUCOSE,POINT OF CARE 151 MG/DL (70-110)
[2020-01-21 04:30] VITALS: BP 137/61
[2020-01-21 06:36] LABS: GLUCOMETER DEV NAME(LOC) 6S.1; GLUCOSE,POINT OF CARE 105 MG/DL (70-110)
[2020-01-21 08:00] VITALS: BP 143/60
[2020-01-21 08:02] LABS: ALANINE AMINOTRANSFERASE 76 U/L (12-78); ALBUMIN 2.9 g/dL (3.4-5.0); ALKALINE PHOSPHATASE 71 U/L (46-116); ANION GAP 8 mmol/L (8-16); ASPARTATE AMINOTRANSFERASE 61 U/L (15-37); BILIRUBIN,TOTAL 0.5 mg/dL (0.1-1.0); C-REACTIVE PROTEIN QUANT 0.07 mg/dL (0.00-0.30); CALCIUM, TOTAL 8.8 mg/dL (8.8-10.5); CARBON DIOXIDE 29 mmol/L (22-29); CHLORIDE 106 mmol/L (98-107); CREATININE 0.67 mg/dL (0.60-1.30); FERRITIN 765 ng/mL (8-252); GLOMERULAR FILTR. RATE CALC > 60 mL/min (>60); GLUCOSE,RANDOM 117 mg/dL (70-110); POTASSIUM 3.9 mmol/L (3.5-5.1); SODIUM SERUM 143 mmol/L (136-145); UREA NITROGEN, BLOOD 19 mg/dL (7-18)
[2020-01-21] MEDS: ZINC SULFATE 220 MG CAPSULE PO SCH ×2 (08:13→20:42)
[2020-01-21] MEDS: SIMVASTATIN 40 MG TABLET PO SCH (08:14)
[2020-01-21] MEDS: ASCORBIC ACID 500 MG TABLET PO SCH ×3 (08:14→20:42)
[2020-01-21] MEDS: MetFORMIN HCL 500 MG TABLET PO SCH (08:14)
[2020-01-21] MEDS: AmLODIPine BESYLATE 5 MG TABLET PO SCH (08:14)
[2020-01-21] MEDS: APIXABAN 2.5 MG TABLET PO SCH ×2 (08:14→20:42)
[2020-01-21] MEDS ORDERED: MULT-660 PO (15:27)
[2020-01-21 17:02] VITALS: BP 156/71
[2020-01-21 20:29] LABS: GLUCOMETER DEV NAME(LOC) 6S.1; GLUCOSE,POINT OF CARE 109 MG/DL (70-110)
[2020-01-21 20:29] LABS: GLUCOMETER DEV NAME(LOC) 6S.1; GLUCOSE,POINT OF CARE 121 MG/DL (70-110)
[2020-01-21 20:45] VITALS: BP 159/85
[2020-01-21] MEDS: INSULIN LISPRO 100 UNITS/ML SQ PRN (21:40)
[2020-01-22 00:11] LABS: GLUCOMETER DEV NAME(LOC) 6S.1; GLUCOSE,POINT OF CARE 200 MG/DL (70-110)
[2020-01-22 05:10] VITALS: BP 140/73
[2020-01-22 06:59] LABS: BASOPHILS % (AUTO) 0.3 % (0.0-2.0); HEMATOCRIT 41.6 % (36-46); LYMPHOCYTES # (AUTO) 3.3 K/uL (1.0-4.8); LYMPHOCYTES % (AUTO) 41.3 % (22.0-44.0); MEAN CORPUSCULAR HEMOGLOBIN 30.6 pg (26.0-34.0); MEAN CORPUSCULAR HGB CONC 33.5 G/dL (31.0-37.0); MEAN CORPUSCULAR VOLUME 91 fL (80-100); MONOCYTES % (AUTO) 12.2 % (2.0-9.0); NEUTROPHILS # (AUTO) 3.5 K/uL (1.8-7.7); NEUTROPHILS % (AUTO) 44.2 % (40.0-70.0); PLATELET COUNT (AUTO) 501 K/uL (150-450); RED BLOOD CELL COUNT(AUTO) 4.56 MIL/uL (4.00-5.20); RED CELL DISTRIBUTION WIDTH 13.3 % (11.5-14.5)
[2020-01-22] MEDS: MULTIVITAMINS WITH MINERALS, THERAPEUTIC TABLET PO SCH (08:21)
[2020-01-22] MEDS: APIXABAN 2.5 MG TABLET PO SCH ×2 (08:21→20:28)
[2020-01-22] MEDS: ZINC SULFATE 220 MG CAPSULE PO SCH ×2 (08:21→20:28)
[2020-01-22] MEDS: ASCORBIC ACID 500 MG TABLET PO SCH ×3 (08:22→20:28)
[2020-01-22] MEDS: MetFORMIN HCL 500 MG TABLET PO SCH (08:22)
[2020-01-22] MEDS: SIMVASTATIN 40 MG TABLET PO SCH (08:22)
[2020-01-22] MEDS: THIAMINE 100 MG TABLET PO SCH (08:22)
[2020-01-22] MEDS: AmLODIPine BESYLATE 5 MG TABLET PO SCH (08:22)
[2020-01-22 08:28] VITALS: BP 153/60
[2020-01-22 12:32] LABS: GLUCOMETER DEV NAME(LOC) 4E.2; GLUCOSE,POINT OF CARE 109 MG/DL (70-110)
[2020-01-22 15:37] VITALS: BP 136/67
[2020-01-22 17:40] LABS: GLUCOMETER DEV NAME(LOC) 6S.1; GLUCOSE,POINT OF CARE 102 MG/DL (70-110)
[2020-01-22] MEDS: INSULIN LISPRO 100 UNITS/ML SQ PRN (17:41)
[2020-01-22 19:41] LABS: GLUCOMETER DEV NAME(LOC) 4E.2; GLUCOSE,POINT OF CARE 142 MG/DL (70-110)
[2020-01-22 20:43] VITALS: BP 134/72
[2020-01-22 22:35] LABS: GLUCOMETER DEV NAME(LOC) 4E.2; GLUCOSE,POINT OF CARE 119 MG/DL (70-110)
[2020-01-23 05:30] VITALS: BP 149/71
[2020-01-23 06:39] LABS: GLUCOMETER DEV NAME(LOC) 6S.1; GLUCOSE,POINT OF CARE 116 MG/DL (70-110)
[2020-01-23 07:45] LABS: ALANINE AMINOTRANSFERASE 72 U/L (12-78); ALBUMIN 3.2 g/dL (3.4-5.0); ALKALINE PHOSPHATASE 81 U/L (46-116); ANION GAP 2 mmol/L (8-16); ASPARTATE AMINOTRANSFERASE 41 U/L (15-37); BILIRUBIN,TOTAL 0.5 mg/dL (0.1-1.0); CALCIUM, TOTAL 9.4 mg/dL (8.8-10.5); CARBON DIOXIDE 32 mmol/L (22-29); CHLORIDE 104 mmol/L (98-107); CREATININE 0.71 mg/dL (0.60-1.30); FERRITIN 712 ng/mL (8-252); GLOMERULAR FILTR. RATE CALC > 60 mL/min (>60); GLUCOSE,RANDOM 122 mg/dL (70-110); POTASSIUM 4.4 mmol/L (3.5-5.1); SODIUM SERUM 138 mmol/L (136-145); TOTAL PROTEIN, SERUM 7.3 g/dL (6.4-8.2); UREA NITROGEN, BLOOD 19 mg/dL (7-18)
[2020-01-23 07:46] LABS: C-REACTIVE PROTEIN QUANT < 0.05 mg/dL (0.00-0.30)
[2020-01-23] MEDS: ZINC SULFATE 220 MG CAPSULE PO SCH ×2 (08:02→20:50)
[2020-01-23] MEDS: APIXABAN 2.5 MG TABLET PO SCH ×2 (08:02→20:50)
[2020-01-23] MEDS: THIAMINE 100 MG TABLET PO SCH (08:02)
[2020-01-23] MEDS: MetFORMIN HCL 500 MG TABLET PO SCH (08:03)
[2020-01-23] MEDS: AmLODIPine BESYLATE 5 MG TABLET PO SCH (08:03)
[2020-01-23] MEDS: SIMVASTATIN 40 MG TABLET PO SCH (08:03)
[2020-01-23] MEDS: ASCORBIC ACID 500 MG TABLET PO SCH ×3 (08:03→20:51)
[2020-01-23] MEDS: MULTIVITAMINS WITH MINERALS, THERAPEUTIC TABLET PO SCH (08:03)
[2020-01-23 08:08] VITALS: BP 128/68
[2020-01-23 13:50] LABS: GLUCOMETER DEV NAME(LOC) 6S.1; GLUCOSE,POINT OF CARE 126 MG/DL (70-110)
[2020-01-23 18:37] LABS: GLUCOMETER DEV NAME(LOC) 6S.1; GLUCOSE,POINT OF CARE 116 MG/DL (70-110)
[2020-01-23 21:26] VITALS: BP 121/63
[2020-01-23 22:41] LABS: GLUCOMETER DEV NAME(LOC) 4E.2; GLUCOSE,POINT OF CARE 140 MG/DL (70-110)
[2020-01-24 01:47] VITALS: BP 131/69
[2020-01-24 05:01] VITALS: BP 122/62
[2020-01-24 07:00] LABS: GLUCOMETER DEV NAME(LOC) 6S.1; GLUCOSE,POINT OF CARE 125 MG/DL (70-110)
[2020-01-24] MEDS: MetFORMIN HCL 500 MG TABLET PO SCH (08:47)
[2020-01-24] MEDS: MULTIVITAMINS WITH MINERALS, THERAPEUTIC TABLET PO SCH (08:47)
[2020-01-24] MEDS: AmLODIPine BESYLATE 5 MG TABLET PO SCH (08:47)
[2020-01-24] MEDS: APIXABAN 2.5 MG TABLET PO SCH ×2 (08:47→20:49)
[2020-01-24] MEDS: ZINC SULFATE 220 MG CAPSULE PO SCH ×2 (08:48→20:49)
[2020-01-24] MEDS: SIMVASTATIN 40 MG TABLET PO SCH (08:48)
[2020-01-24] MEDS: ASCORBIC ACID 500 MG TABLET PO SCH ×3 (08:48→20:49)
[2020-01-24] MEDS: THIAMINE 100 MG TABLET PO SCH (08:48)
[2020-01-24 08:49] VITALS: BP 147/72
[2020-01-24] MEDS: INSULIN LISPRO 100 UNITS/ML SQ PRN ×2 (16:54→20:54)
[2020-01-24 20:20] VITALS: BP 137/54
[2020-01-24 21:13] LABS: GLUCOMETER DEV NAME(LOC) 6S.1; GLUCOSE,POINT OF CARE 155 MG/DL (70-110)
[2020-01-25] VITALS: BP 129/68
[2020-01-25 05:30] VITALS: BP 121/57
[2020-01-25 06:19] LABS: BASOPHILS % (AUTO) 1.2 % (0.0-2.0); HEMOGLOBIN 13.6 g/dL (12.0-16.0); LYMPHOCYTES # (AUTO) 2.9 K/uL (1.0-4.8); LYMPHOCYTES % (AUTO) 37.6 % (22.0-44.0); MEAN CORPUSCULAR HEMOGLOBIN 30.3 pg (26.0-34.0); MEAN CORPUSCULAR HGB CONC 33.2 G/dL (31.0-37.0); MEAN CORPUSCULAR VOLUME 91 fL (80-100); MONOCYTES # (AUTO) 0.8 K/uL (0.1-1.0); NEUTROPHILS # (AUTO) 3.8 K/uL (1.8-7.7); NEUTROPHILS % (AUTO) 48.2 % (40.0-70.0); PLATELET COUNT (AUTO) 445 K/uL (150-450); RED CELL DISTRIBUTION WIDTH 13.6 % (11.5-14.5)
[2020-01-25 06:51] LABS: ALANINE AMINOTRANSFERASE 63 U/L (12-78); ALBUMIN 3.1 g/dL (3.4-5.0); ALKALINE PHOSPHATASE 78 U/L (46-116); ANION GAP 5 mmol/L (8-16); ASPARTATE AMINOTRANSFERASE 38 U/L (15-37); BILIRUBIN,TOTAL 0.4 mg/dL (0.1-1.0); CALCIUM, TOTAL 9.6 mg/dL (8.8-10.5); CARBON DIOXIDE 31 mmol/L (22-29); CHLORIDE 106 mmol/L (98-107); CREATININE 0.85 mg/dL (0.60-1.30); GLOMERULAR FILTR. RATE CALC > 60 mL/min (>60); GLUCOSE,RANDOM 119 mg/dL (70-110); POTASSIUM 4.3 mmol/L (3.5-5.1); SODIUM SERUM 142 mmol/L (136-145); TOTAL PROTEIN, SERUM 7.1 g/dL (6.4-8.2); UREA NITROGEN, BLOOD 16 mg/dL (7-18)
[2020-01-25 07:04] LABS: C-REACTIVE PROTEIN QUANT < 0.05 mg/dL (0.00-0.30)
[2020-01-25 07:05] LABS: FERRITIN 626 ng/mL (8-252)
[2020-01-25 08:05] VITALS: BP 151/83
[2020-01-25] MEDS: ZINC SULFATE 220 MG CAPSULE PO SCH ×2 (08:17→20:00)
[2020-01-25] MEDS: MetFORMIN HCL 500 MG TABLET PO SCH (08:17)
[2020-01-25] MEDS: THIAMINE 100 MG TABLET PO SCH (08:18)
[2020-01-25] MEDS: SIMVASTATIN 40 MG TABLET PO SCH (08:18)
[2020-01-25] MEDS: APIXABAN 2.5 MG TABLET PO SCH ×2 (08:18→20:01)
[2020-01-25] MEDS: AmLODIPine BESYLATE 5 MG TABLET PO SCH (08:18)
[2020-01-25] MEDS: ASCORBIC ACID 500 MG TABLET PO SCH ×3 (08:18→20:01)
[2020-01-25] MEDS: MULTIVITAMINS WITH MINERALS, THERAPEUTIC TABLET PO SCH (08:18)
[2020-01-25 15:03] LABS: GLUCOMETER DEV NAME(LOC) 4E.2; GLUCOSE,POINT OF CARE 161 MG/DL (70-110)
[2020-01-25 15:03] LABS: GLUCOMETER DEV NAME(LOC) 4E.2; GLUCOSE,POINT OF CARE 101 MG/DL (70-110)
[2020-01-25 15:03] LABS: GLUCOMETER DEV NAME(LOC) 4E.2; GLUCOSE,POINT OF CARE 106 MG/DL (70-110)
[2020-01-25 15:03] LABS: GLUCOMETER DEV NAME(LOC) 4E.2; GLUCOSE,POINT OF CARE 102 MG/DL (70-110)
[2020-01-25 16:17] VITALS: BP 144/66
[2020-01-25] MEDS: INSULIN LISPRO 100 UNITS/ML SQ PRN (20:04)
[2020-01-25 20:18] VITALS: BP 146/72
[2020-01-26 00:07] LABS: GLUCOMETER DEV NAME(LOC) 4E.2; GLUCOSE,POINT OF CARE 121 MG/DL (70-110)
[2020-01-26 00:07] LABS: GLUCOMETER DEV NAME(LOC) 4E.2; GLUCOSE,POINT OF CARE 174 MG/DL (70-110)
[2020-01-26 05:55] VITALS: BP 112/53
[2020-01-26 06:22] LABS: GLUCOMETER DEV NAME(LOC) 6S.1; GLUCOSE,POINT OF CARE 101 MG/DL (70-110)
[2020-01-26] MEDS: ZINC SULFATE 220 MG CAPSULE PO SCH (07:59)
[2020-01-26] MEDS: APIXABAN 2.5 MG TABLET PO SCH (07:59)
[2020-01-26] MEDS: ASCORBIC ACID 500 MG TABLET PO SCH ×2 (07:59→15:51)
[2020-01-26] MEDS: MULTIVITAMINS WITH MINERALS, THERAPEUTIC TABLET PO SCH (07:59)
[2020-01-26] MEDS: THIAMINE 100 MG TABLET PO SCH (07:59)
[2020-01-26] MEDS: AmLODIPine BESYLATE 5 MG TABLET PO SCH (07:59)
[2020-01-26] MEDS: MetFORMIN HCL 500 MG TABLET PO SCH (07:59)
[2020-01-26] MEDS: SIMVASTATIN 40 MG TABLET PO SCH (07:59)
[2020-01-26 08:19] VITALS: BP 150/88
[2020-01-26] MEDS ORDERED: METF-960 PO (09:56)
[2020-01-26] MEDS ORDERED: SIMV-46 PO (09:56)
[2020-01-26] MEDS ORDERED: AMLO-257 PO ×2 (09:56→12:40)
[2020-01-26] MEDS ORDERED: APIX2.5T PO ×2 (09:56→12:40)
[2020-01-26] MEDS: INSULIN LISPRO 100 UNITS/ML SQ PRN (12:02)
[2020-01-26 12:18] LABS: GLUCOMETER DEV NAME(LOC) 6S.1; GLUCOSE,POINT OF CARE 157 MG/DL (70-110)
[2020-01-26] MEDS ORDERED: METF-444 PO (12:40)
[2020-01-26] MEDS ORDERED: LISI-661 PO (12:40)
[2020-01-26] MEDS ORDERED: SIMV-261 PO (12:40)
== END 2020-01-26 17:15 | disposition home health service (06) | DRG 177 ==
LOC: EMS 12:43 → 6N 17:03 → UNDODISIN 01-26 17:15
PROVIDERS: ADMIT Internal Medicine; ATTEND Internal Medicine Geriatric Medicine
DX: U07.1 COVID-19 (principal); J12.89 Other viral pneumonia; G93.41 Metabolic encephalopathy; I63.512 Cerebral infarction due to unspecified occlusion or stenosis of left middle cerebral artery; E44.0 Moderate protein-calorie malnutrition; N17.9 Acute kidney failure, unspecified; D68.69 Other thrombophilia; E78.5 Hyperlipidemia, unspecified; E11.9 Type 2 diabetes mellitus without complications; I10 Essential (primary) hypertension; R09.02 Hypoxemia; E78.00 Pure hypercholesterolemia, unspecified; C50.919 Malignant neoplasm of unspecified site of unspecified female breast; Z90.10 Acquired absence of unspecified breast and nipple; Z85.3 Personal history of malignant neoplasm of breast; Z79.01 Long term (current) use of anticoagulants; Z79.4 Long term (current) use of insulin; Z90.11 Acquired absence of right breast and nipple; Z68.20 Body mass index [BMI] 20.0-20.9, adult
CPT/HCPCS: 70450; 70544; 70553; 82728; 82948; 83036; 83605; 83615; 83735; 84439; 84443; 85379; 85384; 86140; 86592; 87040; 87426; 92507; 92523; 93005; 93306; 93880; 97162; 97165; 97535; A9585; G0480; G0481; J1644; J3411; J7030; 36415-L1; 36415-TC; 71045-TC; 80061-TC; U0003-CS

== ENCOUNTER → 2020-02-29 | Outpatient (CLI) | payer OTHER ==
[~2020-02-29] MED LIST changes: +AMLO-257 PO; +APIX2.5T PO; -ASPI81TA87 PO; +LISI-661 PO; +METF-444 PO; +METF-960 PO; -MULT-950 PO; +SIMV-46 PO
[2020-02-29 13:02] LABS: BASOPHILS % (AUTO) 0.9 % (0.0-2.0); EOSINOPHILS % (AUTO) 3.1 % (1.0-6.0); HEMATOCRIT 43.1 % (36-46); HEMOGLOBIN 14.2 g/dL (12.0-16.0); LYMPHOCYTES # (AUTO) 3.6 K/uL (1.0-4.8); LYMPHOCYTES % (AUTO) 46.6 % (22.0-44.0); MEAN CORPUSCULAR HEMOGLOBIN 30.5 pg (26.0-34.0); MEAN CORPUSCULAR HGB CONC 32.9 G/dL (31.0-37.0); MEAN CORPUSCULAR VOLUME 93 fL (80-100); MONOCYTES # (AUTO) 0.5 K/uL (0.1-1.0); MONOCYTES % (AUTO) 6.2 % (2.0-9.0); NEUTROPHILS # (AUTO) 3.3 K/uL (1.8-7.7); NEUTROPHILS % (AUTO) 43.2 % (40.0-70.0); PLATELET COUNT (AUTO) 356 K/uL (150-450); RED BLOOD CELL COUNT(AUTO) 4.65 MIL/uL (4.00-5.20); RED CELL DISTRIBUTION WIDTH 14.5 % (11.5-14.5)
[2020-02-29 13:10] LABS: HEMOGLOBIN A1C 6.8 % (3.8-5.6)
[2020-02-29 13:13] LABS: ALANINE AMINOTRANSFERASE 60 U/L (12-78); ALKALINE PHOSPHATASE 69 U/L (46-116); ANION GAP 10 mmol/L (8-16); ASPARTATE AMINOTRANSFERASE 46 U/L (15-37); BILIRUBIN,TOTAL 0.5 mg/dL (0.1-1.0); CALCIUM, TOTAL 9.7 mg/dL (8.8-10.5); CARBON DIOXIDE 30 mmol/L (22-29); CHLORIDE 105 mmol/L (98-107); CHOL/HDL RATIO 3.7 (3.9-5.7); CHOLESTEROL 201 mg/dL (131-200); CREATININE 0.71 mg/dL (0.60-1.30); GLOMERULAR FILTR. RATE CALC > 60 mL/min (>60); GLUCOSE,RANDOM 146 mg/dL (70-110); HDL CHOLESTEROL 54 mg/dL (40-60); LDL CHOL (CALC.) 121 mg/dL (0-130); POTASSIUM 4.8 mmol/L (3.5-5.1); SODIUM SERUM 145 mmol/L (136-145); TOTAL PROTEIN, SERUM 8.6 g/dL (6.4-8.2); TRIGLYCERIDES 129 mg/dL (15-150); UREA NITROGEN, BLOOD 18 mg/dL (7-18)
== END | disposition home or self-care (01) ==
LOC: MSR 10:00
PROVIDERS: ATTEND Legal Medicine
DX: C50.819 Malignant neoplasm of overlapping sites of unspecified female breast (principal); E11.69 Type 2 diabetes mellitus with other specified complication; E11.65 Type 2 diabetes mellitus with hyperglycemia; E78.2 Mixed hyperlipidemia; R06.00 Dyspnea, unspecified
CPT/HCPCS: 83036; 36415-L1; 36415-TC; 71046; 71046-TC; 80061-TC

== ENCOUNTER → 2020-06-19 | Outpatient (CLI) | payer OTHER ==
[~2020-06-19] MED LIST changes: -LISI-661 PO; +LISI-893 PO
[2020-06-19 12:05] LABS: BASOPHILS % (AUTO) 0.8 % (0.0-2.0); EOSINOPHILS % (AUTO) 3.1 % (1.0-6.0); HEMATOCRIT 44.3 % (36-46); HEMOGLOBIN 14.3 g/dL (12.0-16.0); LYMPHOCYTES % (AUTO) 42.5 % (22.0-44.0); MEAN CORPUSCULAR HEMOGLOBIN 30.1 pg (26.0-34.0); MEAN CORPUSCULAR HGB CONC 32.3 G/dL (31.0-37.0); MEAN CORPUSCULAR VOLUME 93 fL (80-100); MONOCYTES # (AUTO) 0.4 K/uL (0.1-1.0); MONOCYTES % (AUTO) 5.7 % (2.0-9.0); NEUTROPHILS # (AUTO) 3.4 K/uL (1.8-7.7); NEUTROPHILS % (AUTO) 47.9 % (40.0-70.0); PLATELET COUNT (AUTO) 350 K/uL (150-450); RED BLOOD CELL COUNT(AUTO) 4.76 MIL/uL (4.00-5.20); RED CELL DISTRIBUTION WIDTH 13.3 % (11.5-14.5)
[2020-06-19 12:28] LABS: ALANINE AMINOTRANSFERASE 32 U/L (12-78); ALBUMIN 4.1 g/dL (3.4-5.0); ALKALINE PHOSPHATASE 88 U/L (46-116); ANION GAP 10 mmol/L (8-16); ASPARTATE AMINOTRANSFERASE 27 U/L (15-37); BILIRUBIN,TOTAL 0.5 mg/dL (0.1-1.0); CALCIUM, TOTAL 9.5 mg/dL (8.8-10.5); CARBON DIOXIDE 30 mmol/L (22-29); CHLORIDE 100 mmol/L (98-107); CHOL/HDL RATIO 3.9 (3.9-5.7); CHOLESTEROL 205 mg/dL (131-200); CREATININE 0.72 mg/dL (0.60-1.30); GLOMERULAR FILTR. RATE CALC > 60 mL/min (>60); GLUCOSE,RANDOM 128 mg/dL (70-110); HDL CHOLESTEROL 52 mg/dL (40-60); LDL CHOL (CALC.) 129 mg/dL (0-130); POTASSIUM 3.8 mmol/L (3.5-5.1); SODIUM SERUM 140 mmol/L (136-145); THYROID STIMULATING HORMONE 1.15 uIU/mL (0.36-3.74); TOTAL PROTEIN, SERUM 8.9 g/dL (6.4-8.2); TRIGLYCERIDES 120 mg/dL (15-150); UREA NITROGEN, BLOOD 19 mg/dL (7-18)
[2020-06-19 15:04] LABS: VITAMIN D,TOTAL (25-0H) 50 ng/mL (30-100)
[2020-06-19 15:05] LABS: VITAMIN B12 LEVEL 1548 pg/mL (211-911)
[2020-06-19 15:10] LABS: FOLATE SERUM > 24.0 ng/mL (5.4-)
[2020-06-19 15:23] LABS: HEMOGLOBIN A1C 6.4 % (3.8-5.6)
== END | disposition home or self-care (01) ==
LOC: LABPV 08:19
PROVIDERS: ATTEND Legal Medicine
DX: C50.819 Malignant neoplasm of overlapping sites of unspecified female breast (principal); E11.59 Type 2 diabetes mellitus with other circulatory complications; E11.65 Type 2 diabetes mellitus with hyperglycemia; E11.69 Type 2 diabetes mellitus with other specified complication
CPT/HCPCS: 82043; 82306; 82378; 82570; 82607; 82746; 83036; 84443

== ENCOUNTER → 2020-08-28 | Outpatient (CLI) | payer OTHER | END | disposition home or self-care (01) | LOC: RADMN 10:30 | PROVIDERS: ATTEND Psychiatry & Neurology Neurology | DX: I63.512 Cerebral infarction due to unspecified occlusion or stenosis of left middle cerebral artery (principal); G93.89 Other specified disorders of brain | CPT/HCPCS: 70551 ==

== ENCOUNTER → 2020-10-06 | Outpatient (CLI) | payer OTHER ==
[2020-10-06 10:16] LABS: BASOPHILS % (AUTO) 1.3 % (0.0-2.0); EOSINOPHILS % (AUTO) 3.4 % (1.0-6.0); HEMATOCRIT 42.5 % (36-46); HEMOGLOBIN 13.9 g/dL (12.0-16.0); LYMPHOCYTES # (AUTO) 2.9 K/uL (1.0-4.8); LYMPHOCYTES % (AUTO) 39.5 % (22.0-44.0); MEAN CORPUSCULAR HEMOGLOBIN 30.2 pg (26.0-34.0); MEAN CORPUSCULAR HGB CONC 32.6 G/dL (31.0-37.0); MEAN CORPUSCULAR VOLUME 93 fL (80-100); MONOCYTES # (AUTO) 0.4 K/uL (0.1-1.0); MONOCYTES % (AUTO) 5.6 % (2.0-9.0); NEUTROPHILS # (AUTO) 3.7 K/uL (1.8-7.7); NEUTROPHILS % (AUTO) 50.2 % (40.0-70.0); PLATELET COUNT (AUTO) 334 K/uL (150-450); RED BLOOD CELL COUNT(AUTO) 4.59 MIL/uL (4.00-5.20); RED CELL DISTRIBUTION WIDTH 13.6 % (11.5-14.5)
[2020-10-06 10:27] LABS: ALANINE AMINOTRANSFERASE 32 U/L (12-78); ALBUMIN 4.2 g/dL (3.4-5.0); ALKALINE PHOSPHATASE 86 U/L (46-116); ANION GAP 9 mmol/L (8-16); ASPARTATE AMINOTRANSFERASE 18 U/L (15-37); BILIRUBIN,TOTAL 0.4 mg/dL (0.1-1.0); CALCIUM, TOTAL 9.2 mg/dL (8.8-10.5); CARBON DIOXIDE 30 mmol/L (22-29); CHLORIDE 102 mmol/L (98-107); CHOLESTEROL 209 mg/dL (131-200); CREATININE 0.86 mg/dL (0.60-1.30); GLOMERULAR FILTR. RATE CALC > 60 mL/min (>60); GLUCOSE,RANDOM 136 mg/dL (70-110); HDL CHOLESTEROL 52 mg/dL (40-60); LDL CHOL (CALC.) 141 mg/dL (0-130); POTASSIUM 3.8 mmol/L (3.5-5.1); SODIUM SERUM 141 mmol/L (136-145); TOTAL PROTEIN, SERUM 8.3 g/dL (6.4-8.2); TRIGLYCERIDES 79 mg/dL (15-150); UREA NITROGEN, BLOOD 18 mg/dL (7-18)
[2020-10-06 10:34] LABS: HEMOGLOBIN A1C 6.7 % (3.8-5.6)
== END | disposition home or self-care (01) ==
LOC: LABPV 09:28
PROVIDERS: ATTEND Legal Medicine
DX: C50.819 Malignant neoplasm of overlapping sites of unspecified female breast (principal); E11.69 Type 2 diabetes mellitus with other specified complication; E11.65 Type 2 diabetes mellitus with hyperglycemia; I10 Essential (primary) hypertension; E78.2 Mixed hyperlipidemia; K21.9 Gastro-esophageal reflux disease without esophagitis; R77.1 Abnormality of globulin; E46 Unspecified protein-calorie malnutrition
CPT/HCPCS: 80053; 80061; 82043; 82378; 82570; 83036; 85025

== ENCOUNTER → 2020-10-10 | Outpatient (CLI) | payer OTHER | END | disposition home or self-care (01) | LOC: RADMN 09:35 | PROVIDERS: ATTEND Psychiatry & Neurology Neurology | DX: I65.21 Occlusion and stenosis of right carotid artery (principal); I66.02 Occlusion and stenosis of left middle cerebral artery | CPT/HCPCS: 70544 ==

== ENCOUNTER → 2021-02-16 | Outpatient (CLI) | payer OTHER ==
[2021-02-16 11:29] LABS: BASOPHILS % (AUTO) 0.9 % (0.0-2.0); HEMATOCRIT 42.3 % (36-46); HEMOGLOBIN 13.8 g/dL (12.0-16.0); LYMPHOCYTES # (AUTO) 2.4 K/uL (1.0-4.8); LYMPHOCYTES % (AUTO) 34.3 % (22.0-44.0); MEAN CORPUSCULAR HEMOGLOBIN 30.2 pg (26.0-34.0); MEAN CORPUSCULAR HGB CONC 32.7 G/dL (31.0-37.0); MEAN CORPUSCULAR VOLUME 92 fL (80-100); MONOCYTES # (AUTO) 0.5 K/uL (0.1-1.0); MONOCYTES % (AUTO) 6.4 % (2.0-9.0); NEUTROPHILS % (AUTO) 55.4 % (40.0-70.0); PLATELET COUNT (AUTO) 331 K/uL (150-450); RED BLOOD CELL COUNT(AUTO) 4.59 MIL/uL (4.00-5.20); RED CELL DISTRIBUTION WIDTH 13.6 % (11.5-14.5)
[2021-02-16 11:51] LABS: HEMOGLOBIN A1C 6.7 % (3.8-5.6)
[2021-02-16 11:58] LABS: VITAMIN D,TOTAL (25-0H) 32 ng/mL (30-100)
[2021-02-16 12:02] LABS: FOLATE SERUM > 24.0 ng/mL (5.4-); VITAMIN B12 LEVEL > 2000 pg/mL (211-911)
[2021-02-16 12:12] LABS: ALANINE AMINOTRANSFERASE 24 U/L (12-78); ALBUMIN 3.9 g/dL (3.4-5.0); ALKALINE PHOSPHATASE 86 U/L (46-116); ANION GAP 4 mmol/L (8-16); ASPARTATE AMINOTRANSFERASE 14 U/L (15-37); BILIRUBIN,TOTAL 0.5 mg/dL (0.1-1.0); CALCIUM, TOTAL 8.8 mg/dL (8.8-10.5); CARBON DIOXIDE 31 mmol/L (22-29); CHLORIDE 105 mmol/L (98-107); CHOL/HDL RATIO 4.6 (3.9-5.7); CHOLESTEROL 244 mg/dL (131-200); CREATININE 0.64 mg/dL (0.60-1.30); GLOMERULAR FILTR. RATE CALC > 60 mL/min (>60); GLUCOSE,RANDOM 120 mg/dL (70-110); HDL CHOLESTEROL 53 mg/dL (40-60); LDL CHOL (CALC.) 174 mg/dL (0-130); POTASSIUM 3.9 mmol/L (3.5-5.1); SODIUM SERUM 140 mmol/L (136-145); THYROID STIMULATING HORMONE 1.54 uIU/mL (0.36-3.74); TOTAL PROTEIN, SERUM 8.3 g/dL (6.4-8.2); TRIGLYCERIDES 85 mg/dL (15-150); UREA NITROGEN, BLOOD 20 mg/dL (7-18)
== END | disposition home or self-care (01) ==
LOC: LABPV 10:42
PROVIDERS: ATTEND Legal Medicine
DX: C50.819 Malignant neoplasm of overlapping sites of unspecified female breast (principal); E11.69 Type 2 diabetes mellitus with other specified complication; E11.65 Type 2 diabetes mellitus with hyperglycemia
CPT/HCPCS: 80053; 80061; 82043; 82306; 82378; 82570; 82607; 82746; 83036; 83735; 84443; 85025

== ENCOUNTER → 2021-04-09 | Outpatient (CLI) | payer OTHER ==
[~2021-04-09] MED LIST changes: +METF-1211 PO; -METF-960 PO
[2021-04-09 12:26] LABS: HEMATOCRIT 43.9 % (36-46); HEMOGLOBIN 14.6 g/dL (12.0-16.0); LYMPHOCYTES # (AUTO) 2.4 K/uL (1.0-4.8); LYMPHOCYTES % (AUTO) 36.1 % (22.0-44.0); MEAN CORPUSCULAR HEMOGLOBIN 30.1 pg (26.0-34.0); MEAN CORPUSCULAR HGB CONC 33.2 G/dL (31.0-37.0); MEAN CORPUSCULAR VOLUME 91 fL (80-100); MONOCYTES # (AUTO) 0.4 K/uL (0.1-1.0); MONOCYTES % (AUTO) 6.2 % (2.0-9.0); NEUTROPHILS # (AUTO) 3.5 K/uL (1.8-7.7); NEUTROPHILS % (AUTO) 52.7 % (40.0-70.0); PLATELET COUNT (AUTO) 369 K/uL (150-450); RED BLOOD CELL COUNT(AUTO) 4.83 MIL/uL (4.00-5.20); RED CELL DISTRIBUTION WIDTH 13.5 % (11.5-14.5)
[2021-04-09 12:42] LABS: HEMOGLOBIN A1C 6.8 % (3.8-5.6)
[2021-04-09 12:50] LABS: ALANINE AMINOTRANSFERASE 22 U/L (12-78); ALBUMIN 4.1 g/dL (3.4-5.0); ALKALINE PHOSPHATASE 87 U/L (46-116); ANION GAP 7 mmol/L (8-16); ASPARTATE AMINOTRANSFERASE 21 U/L (15-37); BILIRUBIN,TOTAL 0.6 mg/dL (0.1-1.0); CALCIUM, TOTAL 9.9 mg/dL (8.8-10.5); CARBON DIOXIDE 30 mmol/L (22-29); CHLORIDE 105 mmol/L (98-107); CHOL/HDL RATIO 3.9 (3.9-5.7); CHOLESTEROL 231 mg/dL (131-200); GLOMERULAR FILTR. RATE CALC > 60 mL/min (>60); GLUCOSE,RANDOM 138 mg/dL (70-110); HDL CHOLESTEROL 59 mg/dL (40-60); LDL CHOL (CALC.) 156 mg/dL (0-130); SODIUM SERUM 142 mmol/L (136-145); TRIGLYCERIDES 79 mg/dL (15-150); UREA NITROGEN, BLOOD 23 mg/dL (7-18)
== END | disposition home or self-care (01) ==
LOC: LABPV 10:02
PROVIDERS: ATTEND Legal Medicine
DX: E78.5 Hyperlipidemia, unspecified (principal); I10 Essential (primary) hypertension; E11.65 Type 2 diabetes mellitus with hyperglycemia; C50.819 Malignant neoplasm of overlapping sites of unspecified female breast
CPT/HCPCS: 80053; 80061; 82378; 83036; 85025

== ENCOUNTER → 2021-05-21 | Outpatient (CLI) | payer OTHER | END | disposition home or self-care (01) | LOC: RADMN 13:09 | PROVIDERS: ATTEND Legal Medicine | DX: I70.0 Atherosclerosis of aorta (principal); M47.814 Spondylosis without myelopathy or radiculopathy, thoracic region; M46.04 Spinal enthesopathy, thoracic region; R06.02 Shortness of breath | CPT/HCPCS: 71046 ==

== ENCOUNTER → 2023-02-10 | Outpatient (CLI) | payer OTHER ==
[2023-02-11 02:07] LABS: MUMPS VIRUS IGG ANTIBODY 41.2 AU/mL (Immune >10.9); RUBELLA AB IGG-REFLAB 7.46 index (Immune >0.99)
[2023-02-11 03:06] LABS: RUBEOLA (MEASLES) IGG >300.0 AU/mL (Immune >16.4); VARICELLA ZOSTER IGG AB TITER 1087 index (Immune >165)
== END | disposition home or self-care (01) ==
LOC: LABMN 08:49
PROVIDERS: ATTEND Internal Medicine
DX: Z02.1 Encounter for pre-employment examination (principal)
CPT/HCPCS: 86706; 86735; 86762; 86765; 86787